=== PATIENT | male | born 1965 | race Caucasian/White ===

== ENCOUNTER 2025-07-30 09:59 | Outpatient (CLI) | payer OTHER, SELFPAY | END 2025-07-30 10:00 | disposition home or self-care (01) | LOC: NFLDREF 10:01 | PROVIDERS: PCP Family Medicine; Visit Provider Family Medicine | DX: I10 Essential (primary) hypertension (principal) | CPT/HCPCS: 80048 ==

== ENCOUNTER 2025-08-07 13:49 | Outpatient (CLI) | payer OTHER, SELFPAY ==
--- NOTE | 2025-08-07 14:00 | CRLHL7_ITS ---
For Patients: As a result of the Century Cures Act, medical imaging exams and procedure reports are released immediately into your electronic medical record. You may view this report before your referring provider. If you have questions, please contact your health care provider. INDICATION: Right sided lump COMPARISON: none TECHNIQUE: Camp scale imaging was performed of the scrotum. In addition color Doppler and spectral Doppler analysis was performed of the testes. FINDINGS: The testes demonstrate normal arterial and venous blood flow on color Doppler and spectral Doppler analysis. The testes have uniform echogenicity with no evidence of a suspicious mass or area of inflammation. The right testis measures 5.5 x 2.7 x 2.8 cm in size and the left testis measures 5.2 x 3.0 x 2.8 cm. Incidental left epididymis appendix measures 8 x 3 x 4 millimeters. Left epididymal head cyst measures 7 x 6 x 6 millimeters. Large circumscribed anechoic cyst arises from the right epididymal head and measures 5.5 x 2.9 x 3.9 cm. No varicocele. IMPRESSION: Right epididymal head spermatocele measures 5.5 cm. Normal testicles. Dictated by Jonathan Marquez MD @ 08/08/2025 6:29:59 AM (Electronically Signed)
== END 2025-08-07 13:50 | disposition home or self-care (01) ==
LOC: US 13:51
PROVIDERS: PCP Family Medicine; Visit Provider Family Medicine
DX: N50.89 Other specified disorders of the male genital organs (principal); N43.41 Spermatocele of epididymis, single
CPT/HCPCS: 76870; 93976

== ENCOUNTER 2025-08-29 10:30 | Outpatient (CLI) | payer OTHER, SELFPAY ==
--- NOTE | 2025-08-29 11:53 | P.ANES_ITS ---
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
--- NOTE | 2025-08-29 11:53 | W.ANESCHARGE ---
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
== END 2025-08-29 10:31 | disposition home or self-care (01) ==
LOC: OP CLINIC 10:31
PROVIDERS: PCP Family Medicine; Visit Provider Surgery
DX: Z12.11 Encounter for screening for malignant neoplasm of colon (principal); Z86.0100 Personal history of colon polyps, unspecified; D12.0 Benign neoplasm of cecum; D12.2 Benign neoplasm of ascending colon; D12.3 Benign neoplasm of transverse colon; K57.30 Diverticulosis of large intestine without perforation or abscess without bleeding
CPT/HCPCS: 00811; 00812; 45385; 88305; J2704